=== PATIENT | female | born 1990 | race Caucasian/White ===

== ENCOUNTER 2019-06-21 06:13 | Emergency (ER) | payer BC ==
[~2019-06-21] VITALS: Ht 170.2 cm; Wt 158.8 kg
[2019-06-21 06:35] VITALS: BP_SYST 158
--- NOTE | 2019-06-21 08:16 | NUR ---
Patient to ER bed 01 to gown for evaluation. Side rails up.
--- NOTE | 2019-06-21 08:20 | NUR ---
ER at bedside examining patient.
--- NOTE | 2019-06-21 08:25 | NUR ---
pt arrives home home w/ c/o abd pain since this am. Pt denies any consitipation. Stated that she had a similar episode of abd pain w/ vomiting last week. Pt denies fever
[2019-06-21] MEDS ORDERED: ONDANSETRON HCL 4 MG/2 ML VIAL IVP ONE (08:30)
[2019-06-21] MEDS ORDERED: MORPHINE 2 MG/ML INJ. SYRINGE IM ONE (08:30)
[2019-06-21 09:21] LABS: BASOPHILS % (AUTO) 0.5 % (0.0-2.0); EOSINOPHILS % (AUTO) 0.1 % (0.0-4.0); HEMATOCRIT 31.6 % (36-48); HEMOGLOBIN 10.6 g/dL (12.0-16.0); LYMPHOCYTES % (AUTO) 10.2 % (20.5-51.5); MEAN CORPUSCULAR HEMOGLOBIN 27 pg (27-31); MEAN CORPUSCULAR HGB CONC 34 % (32-36); MEAN CORPUSCULAR VOLUME 80 fL (79.0-98.0); MONOCYTES # (AUTO) 0.3 K/uL (0.0-1.0); MONOCYTES % (AUTO) 3.4 % (1.7-9.3); NEUTROPHILS # (AUTO) 8.8 K/uL (1.8-7.7); NEUTROPHILS % (AUTO) 85.8 % (40.0-70.0); PLATELET COUNT (AUTO) 402 K/uL (130-430); RED BLOOD CELL COUNT(AUTO) 3.94 MIL/uL (4.2-6.2); RED CELL DISTRIBUTION WIDTH 14.6 % (9.0-15.0); WHITE BLOOD COUNT (AUTO) 10.2 K/uL (4.8-10.8)
[2019-06-21 09:40] LABS: CALCIUM 8.6 mg/dL (8.4-11.0); CREATININE 0.96 mg/dL (0.55-1.30); POTASSIUM 4.1 mmol/L (3.5-5.1)
[2019-06-21 09:43] LABS: ALBUMIN 3.4 g/dL (3.4-4.8); TOTAL BILIRUBIN 0.2 mg/dL (0.0-1.0)
--- NOTE | 2019-06-21 10:22 | NUR ---
# 22 gauge angiocath placed to LAC Use of asceptic technique. Opsite placed over site. Blood return noted. Blood for lab drawn from site. Flushed with 10 cc of normal saline. No evidence of infiltration noted. Patient tolerated well.
--- NOTE | 2019-06-21 10:23 | NUR ---
Gianna fairchild in ED - 06/21/19 at 1059 by [email or web address] pt states that he wants to "take Heroin and go to sleep".
[2019-06-21] MEDS ORDERED: KETOROLAC TROMETHAMINE 30 MG VIAL IVP ONE (10:30)
[2019-06-21] MEDS ORDERED: NACL 0.9% 1,000 ML IV ONE (10:30)
--- NOTE | 2019-06-21 10:30 | NUR ---
medicated the pt w/ Toradol for pain. Will reassess
[2019-06-21 10:57] VITALS: BP_SYST 158
--- NOTE | 2019-06-21 10:59 | NUR ---
Patient given written and verbal discharge instructions and verbalizes understanding. ER MD discussed with patient the results and treatment provided. Patient in stable condition. ID arm band removed. IV catheter removed intact and dressing applied, no active bleeding. Rx of Flomax, Pendergrass, and Motrin given. Patient educated on pain management and to follow up with PMD. Pain Scale 3/. Opportunity for questions provided and answered. Medication side effect fact sheet provided.
== END 2019-06-21 10:59 | disposition home or self-care (01) ==
LOC: SED 06:13
DX: N23 Unspecified renal colic (principal)
CPT/HCPCS: 36415; 74176; 80053; 81002; 81025; 83690; 85025; 96372; 96374; 99284; J1885; J2270; J2405; J7030

== ENCOUNTER 2019-07-04 21:57 | Emergency (ER) | payer BC ==
[~2019-07-04] VITALS: Ht 167.6 cm; Wt 158.8 kg
[2019-07-05 01:14] VITALS: BP_SYST 149
--- NOTE | 2019-07-05 07:01 | NUR ---
Patient to ER bed 6 to gown for evaluation. Side rails up. Assumed care.
--- NOTE | 2019-07-05 07:04 | NUR ---
Patient arrived via POV, AAOx4, and ambulatory with steady gait. Patient accompanied by mother. Patient stated c/c of kidney stones. Patient states she was seen 2 weeks ago and diagnosed with "a few kidney stones." Patient was sent home with hydrocodone and flomax. She took pain medication x2 with no relief. Pain still remains 7/10 to left back radiating to left groin. No pain is noted upon urination, and patient able to empty bladder. Patient states urine is clear in color unknown regarding blood. Will continue to follow up and monitor.
--- NOTE | 2019-07-05 07:40 | NUR ---
FREDY Hernandez at bedside examining patient.
[2019-07-05] MEDS ORDERED: fentaNYL CITRATE/PF 100 MCG/2 ML AMP IVP ONE (08:15)
[2019-07-05] MEDS ORDERED: NACL 0.9% 1,000 ML IV ONE (08:15)
[2019-07-05] MEDS ORDERED: ONDANSETRON HCL 4 MG/2 ML VIAL IVP ONE (08:15)
[2019-07-05] MEDS ORDERED: KETOROLAC TROMETHAMINE 30 MG VIAL IVP ONE (09:15)
--- NOTE | 2019-07-05 09:15 | NUR ---
Requested Toradol for residual pain to flank region. MD Reilly ordered.
[2019-07-05 10:00] VITALS: BP_SYST 157
--- NOTE | 2019-07-05 10:00 | NUR ---
Patient given written and verbal discharge instructions and verbalizes understanding. ER MD discussed with patient the results and treatment provided. Patient in stable condition. ID arm band removed. IV catheter removed intact and dressing applied, no active bleeding. Rx of Ibuprofen given. Patient educated on pain management and to follow up with PMD. Pain Scale 0/10. Opportunity for questions provided and answered. Medication side effect fact sheet provided. Patient educated on if she takes the norco to not take additional tylenol with the dose as it contains Tylenol.
== END 2019-07-05 10:00 | disposition home or self-care (01) ==
LOC: SED 21:57
DX: N20.0 Calculus of kidney (principal)
CPT/HCPCS: 81002; 81025; 96374; 96375; 99284